=== PATIENT | female | born 1970 ===

== ENCOUNTER 2016-12-16 21:59 | Emergency (ER) | payer MEDICAID, OTHER ==
[2016-12-17 00:03] LABS: PH,URINE 6.5 (5.0-8.0); URINE BILIRUBIN NEGATIVE (NEGATIVE); URINE BLOOD 4+ (NEGATIVE); URINE GLUCOSE (UA) NEGATIVE (NEGATIVE); URINE LEUKOCYTE ESTERASE 1+ (NEGATIVE); URINE NITRITE NEGATIVE (NEGATIVE); URINE PROTEIN TRACE (NEGATIVE); URINE UROBILINOGEN NORMAL (0-1 mg/dl)
[2016-12-17 00:04] LABS: URINE APPEARANCE SL CLOUDY; URINE COLOR YELLOW
[2016-12-17 00:10] LABS: URINE WBC 25-30 /hpf
[2016-12-17] MEDS ORDERED: IBUPROFEN 800 MG TABLET ONE (00:10)
[2016-12-17] MEDS ORDERED: CIPROFLOXACIN 500 MG TABLET ONE (00:10)
[2016-12-17 00:11] LABS: URINE BACTERIA RARE; URINE EPITHELIAL CELLS 0-2 /hpf
== END 2016-12-17 00:40 | disposition home or self-care (01) ==
LOC: ED 21:59
DX: N39.0 Urinary tract infection, site not specified (principal)
CPT/HCPCS: 87086; 81001; 99283 ×2; A9270 ×2